=== PATIENT | male | born 1945 | race Caucasian/White ===

== ENCOUNTER 2024-12-26 13:23 | Inpatient (IN) | payer MEDICARE, OTHER ==
[2024-12-26 14:37] LABS: INR 1.1 (0.9-1.1); PROTHROMBIN TIME 10.9 SEC (9.0-11.1)
[2024-12-26 14:47] LABS: ANION GAP 6.5 meq/L (7-15); BILIRUBIN TOTAL 0.3 mg/dL (0.2-1.0); CALCIUM 8.8 mg/dL (8.5-10.1); CARBON DIOXIDE,CO2 27.5 mmol/L (21.0-32.0); CREATININE 0.95 mg/dL (0.51-1.17); EST CRCL DRUG DOSING (CG) 57.98 mL/min; POTASSIUM,K 3.8 mmol/L (3.5-5.1); PROTEIN TOTAL,TP 7.5 g/dL (6.4-8.2)
[2024-12-26 14:52] LABS: BASOPHILS ABSOLUTE AUTO 0.04 K/uL (0.00-0.20); BASOPHILS PERCENT AUTO 0.8 % (0.0-2.0); EOSINOPHILS ABSOLUTE AUTO 0.23 K/uL (0.00-0.50); EOSINOPHILS PERCENT AUTO 4.6 % (0.0-5.0); HEMATOCRIT 39.4 % (39.0-49.0); HEMOGLOBIN 12.8 g/dL (13.1-16.8); IMMATURE GRAN ABSOLUTE AUTO 0.01 10^3/uL (0.00-0.04); IMMATURE GRAN PERCENT AUTO 0.2 % (0.0-0.4); LYMPHOCYTES ABSOLUTE AUTO 1.21 K/uL (0.50-3.50); LYMPHOCYTES PERCENT AUTO 24.2 % (10.0-50.0); MEAN CORPUSCULAR HEMOGLOBIN 29.2 pg (28.2-33.3); MEAN CORPUSCULAR HGB CONC 32.5 g/dL (31.7-36.0); MEAN CORPUSCULAR VOLUME 89.7 fL (84.0-98.0); MONOCYTES ABSOLUTE AUTO 0.74 K/uL (0.00-1.00); MONOCYTES PERCENT AUTO 14.8 % (2.0-14.0); NEUTROPHILS ABSOLUTE AUTO 2.77 K/uL (1.40-7.00); NEUTROPHILS PERCENT AUTO 55.4 % (45.0-80.0); PLATELET COUNT,PLT 208 K/uL (150-350); RED BLOOD CELL COUNT 4.39 M/uL (4.33-5.41); RED CELL DISTRIBUTION WIDTH 14.9 % (11.2-14.1)
[2024-12-26] MEDS: Atropine/Diphenoxylate 0.025-2.5 MG Tab PO ONE (14:58)
[2024-12-26 15:02] LABS: CORONAVIRUS COVID-19 NAA NEGATIVE (NEGATIVE); INFLUENZA A NAA NEGATIVE (NEGATIVE); INFLUENZA B NAA NEGATIVE (NEGATIVE); RESPIRATORY SYNCYTIAL VIR NAA NEGATIVE (NEGATIVE)
[2024-12-26 15:17] LABS: LACTIC ACID 1.2 mmol/L (0.4-2.0)
[2024-12-26 15:47] LABS: APPEARANCE,URINE CLOUDY; BILIRUBIN,URINE NEGATIVE (NEGATIVE); COLOR,URINE YELLOW; GLUCOSE,URINE NEGATIVE (NEGATIVE); KETONES,URINE NEGATIVE (NEGATIVE); LEUKOCYTE ESTERASE,URINE MODERATE (NEGATIVE); NITRITE,URINE NEGATIVE (NEGATIVE); OCCULT BLOOD,URINE NEGATIVE (NEGATIVE); PH,URINE 5.5 (5.0-9.0); PROTEIN,URINE 30 mg/dL (NEGATIVE); UROBILINOGEN,URINE 0.2 E.U./dL (0.2-1.0)
[2024-12-26 15:56] LABS: AMORPHOUS SEDIMENT,URINE MODERATE /HPF (0/HPF); BACTERIA,URINE OCCASIONAL /HPF (NONE TO FEW); EPITHELIAL CELLS,URINE OCCASIONAL /LPF; MUCUS,URINE OCCASIONAL /LPF (NEGATIVE); WBC,URINE 20-30 /HPF
[2024-12-26] MEDS: OLANZapine 10 MG Vial ONE ×2 (18:35→19:38)
[2024-12-26] MEDS: Tamsulosin 0.4 MG Cap.ER PO ONE (18:35)
[2024-12-26] MEDS: LORazepam 2 MG/ML SDV IVPUSH ONE (20:40)
[2024-12-26] MEDS: Sodium Chloride 0.9% 10 ML Syringe FLUSH PRN (20:45)
[2024-12-26] MEDS ORDERED: OLANZapine 10 MG Tab.DIS PO PRN (21:08)
[2024-12-26] MEDS ORDERED: Tamsulosin 0.4 MG Cap.ER PO SCH (21:15)
[2024-12-26] MEDS: Cefepime 2 GM in Sodium Chloride 0.9% 100 ML IV SCH (21:23)
[2024-12-27] MEDS ORDERED: Acetaminophen 500 MG Tab PO PRN (03:40)
[2024-12-27] MEDS ORDERED: Bisacodyl 5 MG Tab PO PRN (03:40)
[2024-12-27 08:04] LABS: BASOPHILS ABSOLUTE AUTO 0.03 K/uL (0.00-0.20); BASOPHILS PERCENT AUTO 0.5 % (0.0-2.0); EOSINOPHILS ABSOLUTE AUTO 0.23 K/uL (0.00-0.50); EOSINOPHILS PERCENT AUTO 3.7 % (0.0-5.0); HEMATOCRIT 40.2 % (39.0-49.0); HEMOGLOBIN 13.2 g/dL (13.1-16.8); IMMATURE GRAN ABSOLUTE AUTO 0.01 10^3/uL (0.00-0.04); IMMATURE GRAN PERCENT AUTO 0.2 % (0.0-0.4); LYMPHOCYTES ABSOLUTE AUTO 1.05 K/uL (0.50-3.50); LYMPHOCYTES PERCENT AUTO 16.9 % (10.0-50.0); MEAN CORPUSCULAR HGB CONC 32.8 g/dL (31.7-36.0); MEAN CORPUSCULAR VOLUME 88.4 fL (84.0-98.0); MONOCYTES ABSOLUTE AUTO 0.61 K/uL (0.00-1.00); MONOCYTES PERCENT AUTO 9.8 % (2.0-14.0); NEUTROPHILS ABSOLUTE AUTO 4.28 K/uL (1.40-7.00); NEUTROPHILS PERCENT AUTO 68.9 % (45.0-80.0); PLATELET COUNT,PLT 202 K/uL (150-350); RED BLOOD CELL COUNT 4.55 M/uL (4.33-5.41); RED CELL DISTRIBUTION WIDTH 14.7 % (11.2-14.1); WHITE BLOOD CELL COUNT,WBC 6.2 K/uL (4.0-10.2)
[2024-12-27 08:25] LABS: ANION GAP 6.7 meq/L (7-15); BILIRUBIN TOTAL 0.4 mg/dL (0.2-1.0); CALCIUM 8.6 mg/dL (8.5-10.1); CARBON DIOXIDE,CO2 29.3 mmol/L (21.0-32.0); CREATININE 0.94 mg/dL (0.51-1.17); EST CRCL DRUG DOSING (CG) 58.6 mL/min; MAGNESIUM 1.7 mg/dL (1.8-2.4); POTASSIUM,K 3.5 mmol/L (3.5-5.1); PROTEIN TOTAL,TP 7.3 g/dL (6.4-8.2)
[2024-12-27] MEDS: Tamsulosin 0.4 MG Cap.ER PO SCH (08:37)
[2024-12-27] MEDS: Lutein/Minerals/Vitamin C/Vitamin E Acetate Cap PO SCH (08:37)
[2024-12-27] MEDS: Trospium 20 MG Tab PO SCH (08:37)
[2024-12-27] MEDS: Cholecalciferol (Vitamin D3) 25 MCG Tab PO SCH (08:38)
[2024-12-27] MEDS: Sertraline 50 MG Tab PO SCH (08:38)
[2024-12-27] MEDS: Timolol Maleate 0.5% Ophth Soln 5 ML Bottle EYERT SCH (08:39)
[2024-12-27] MEDS: Cyanocobalamin (Vitamin B12) 1,000 MCG Tab PO SCH (08:39)
[2024-12-27] MEDS: Psyllium Husk Powder Sugar Free 5.85 GM Packet PO SCH (08:45)
[2024-12-27] MEDS: Nystatin Topical Powder 15 GM Bottle TOP SCH (08:47)
[2024-12-27] MEDS: LORazepam 2 MG/ML SDV IVPUSH PRN (11:10)
[2024-12-27] MEDS ORDERED: Donepezil 10 MG Tab PO SCH (20:00)
[2024-12-27] MEDS ORDERED: Melatonin 3 MG Tab PO SCH (20:00)
[2024-12-27] MEDS ORDERED: Loperamide 2 MG Tab PO SCH (20:00)
== END 2024-12-27 12:40 | disposition home or self-care (01) | DRG 689 ==
LOC: LL.ED 13:23 → LL.MS 18:35
PROVIDERS: ADMIT Physician Assistant; ATTEND Physician Assistant
DX: N39.0 Urinary tract infection, site not specified (principal); Z88.5 Allergy status to narcotic agent; N30.00 Acute cystitis without hematuria; J18.9 Pneumonia, unspecified organism; F03.94 Unspecified dementia, unspecified severity, with anxiety; R53.1 Weakness; E55.9 Vitamin D deficiency, unspecified; Z66 Do not resuscitate; E86.0 Dehydration; F32.A Depression, unspecified; Z88.8 Allergy status to other drugs, medicaments and biological substances; Z79.899 Other long term (current) drug therapy
CPT/HCPCS: 0241U; 36415; 71045; 71250; 74176; 80053; 81001; 83605; 83735; 83880; 85025; 85610; 87040; 87070; 87086; 87205; 96374; 96375; 96376; 99285-25; A9270-GY; J0692; J2060; J2359

== ENCOUNTER 2025-08-28 21:21 | Emergency (ER) | payer OTHER ==
[2025-08-28] MEDS: fentaNYL 50 MCG/ML SDV IVPUSH ONE (21:43)
[2025-08-28] MEDS ORDERED: Sodium Chloride 0.9% 10 ML Syringe FLUSH PRN (21:46)
[2025-08-28 23:35] LABS: BASOPHILS ABSOLUTE AUTO 0.03 K/uL (0.00-0.20); BASOPHILS PERCENT AUTO 0.3 % (0.0-2.0); EOSINOPHILS ABSOLUTE AUTO 0.28 K/uL (0.00-0.50); EOSINOPHILS PERCENT AUTO 2.5 % (0.0-5.0); IMMATURE GRAN ABSOLUTE AUTO 0.01 10^3/uL (0.00-0.04); IMMATURE GRAN PERCENT AUTO 0.1 % (0.0-0.4); LYMPHOCYTES ABSOLUTE AUTO 1.68 K/uL (0.50-3.50); LYMPHOCYTES PERCENT AUTO 14.9 % (10.0-50.0); MONOCYTES ABSOLUTE AUTO 0.92 K/uL (0.00-1.00); MONOCYTES PERCENT AUTO 8.1 % (2.0-14.0); NEUTROPHILS ABSOLUTE AUTO 8.37 K/uL (1.40-7.00); NEUTROPHILS PERCENT AUTO 74.1 % (45.0-80.0); PLATELET COUNT,PLT 218 K/uL (150-350); RED BLOOD CELL COUNT 4.18 M/uL (4.33-5.41); RED CELL DISTRIBUTION WIDTH 15.8 % (11.2-14.1); WHITE BLOOD CELL COUNT,WBC 11.3 K/uL (4.0-10.2)
[2025-08-28 23:49] LABS: ALANINE AMINOTRANSFERASE,ALT 10 U/L (12-78); ASPARTATE AMNIOTRANSFERASE,AST 11 U/L (15-37); BILIRUBIN TOTAL 0.3 mg/dL (0.2-1.0); BLOOD UREA NITROGEN,BUN 12 mg/dL (7-18); CARBON DIOXIDE,CO2 25.4 mmol/L (21.0-32.0); CHLORIDE,CL 107 mmol/L (98-107); CREATININE 0.87 mg/dL (0.51-1.17); GLUCOSE RANDOM 152 mg/dL (70-99); POTASSIUM,K 3.7 mmol/L (3.5-5.1); PROTEIN TOTAL,TP 7.5 g/dL (6.4-8.2); SODIUM,NA 143 mmol/L (136-145)
[2025-08-28 23:50] LABS: ESTIMATED GFR 87 mL/min (>=60)
[2025-08-29] MEDS: Iopamidol 755 Mg/ML 100 ML Bottle ONE (00:38)
[2025-08-29] MEDS: fentaNYL 50 MCG/ML SDV IVPUSH ONE (01:30)
[2025-08-29] MEDS: Take Home: Acetaminophen/HYDROcodone 325-5 MG, 5 Tab Pack PO ONE (02:11)
== END 2025-08-29 02:20 ==
LOC: LL.ED 21:21
DX: S42.031A Displaced fracture of lateral end of right clavicle, initial encounter for closed fracture (principal); Z79.899 Other long term (current) drug therapy; Z88.5 Allergy status to narcotic agent; W19.XXXA Unspecified fall, initial encounter
CPT/HCPCS: 36415; 70450; 70498; 72125; 73030-RT; 80053; 85025; 96374; 96376; 99284; 99284-25; A9270-GY; J3010; Q9967